=== PATIENT | male | born 1955 | race Two or more races ===

== ENCOUNTER 2021-01-12 07:02 | Emergency (ER) | payer OTHER ==
[~2021-01-12] VITALS: Ht 182.9 cm; Wt 95.3 kg
[~2021-01-12 07:02] MED LIST: CIPROFLOXACIN500 MG PO; METRONIDAZOLE500 MG PO; TAMS0.4C
== END 2021-01-12 12:30 | disposition home or self-care (01) ==
LOC: ER 07:02
DX: K57.90 Diverticulosis of intestine, part unspecified, without perforation or abscess without bleeding (principal)